=== PATIENT | male | born 1950 | race Caucasian/White ===

== ENCOUNTER 2023-06-24 11:36 | Observation (INO) | payer MEDICARE ==
--- NOTE | 2023-06-24 11:39 | ERPHSYRPT ---
- History of Present Illness Time Seen by Provider: 06/24/23 11:39 Source: patient, EMS, shelter records, old records Exam Limitations: clinical condition Physician History: This is a 73-year-old white male patient of Dr. Zhou who was brought to the emergency department by the paramedics who provided additional, independent history secondary to patient's confusion. In addition, I reviewed the [facility] notes. 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 He is DNR. The shelter reported the patient to be hypotensive with a systolic blood pressure in the 70s. Patient arrives to the emergency department with a systolic blood pressure of 104. Patient is confused but is able to answer some questions appropriately. Patient was sent to us because of the altered mental status as well as abnormal lab findings The lab findings that the shelter nurse reported were labs that were obtained on 06/18/2023. Patient is reported to be on lactulose. Patient also was scheduled for outpatient paracentesis on 06/29/2023. I reviewed the outpatient lab information from those labs reported to be drawn on 06/18/2023. Timing/Duration: today Severity: moderate Associated Symptoms: other (The patient reports that his bilateral upper extremities are tender. He has no complaints of abdominal pain, chest pain or shortness of breath.) Allergies/Adverse Reactions: No Known Drug Allergies Allergy (Verified 06/24/23 12:25) Home Medications: Furosemide [Lasix] 20 mg PO DAILY 06/24/23 [History] Hydrocodone/Acetaminophen [[place] 10-325 mg] 1 tablet PO Q6H PRN PRN 06/24/23 [ History] Lactulose [Lactulose 20 gm/30Ml Ud Cup] 10 gm PO QID 06/24/23 [History] Lorazepam 0.5 mg [Ativan 0.5 MG] 0.5 mg PO Q8H PRN PRN 06/24/23 [History] Losartan Potassium 50 mg [Cozaar 50 MG] 50 mg PO DAILY 06/24/23 [History] Pantoprazole Sodium [Protonix] 40 mg PO BID 06/24/23 [History] Potassium Chloride 10 meq PO DAILY 06/24/23 [History] Prochlorperazine Maleate 10 mg PO Q4H PRN PRN 06/24/23 [History] Spironolactone [Aldactone] 50 mg PO BID 06/24/23 [History] Tramadol HCl 50 mg [Ultram 50 mg] 50 mg PO Q6H PRN PRN 06/24/23 [History] ondansetron HCL [Ondansetron HCl] 8 mg PO Q6H PRN PRN 06/24/23 [History] Travel Risk - International Travel Have you traveled outside of the country in past 3 weeks: No - Emerging Infectious Disease Are you exhibiting symptoms associated with any current EIDs: No - Review of Systems Constitutional: No Symptoms Eyes: No Symptoms Ears, Nose, & Throat: No Symptoms Respiratory: No Symptoms Cardiac: No Symptoms Abdominal/Gastrointestinal: No Symptoms Genitourinary Symptoms: No Symptoms Musculoskeletal: No Symptoms Skin: No Symptoms Psychological: Other (Mildly confused) Endocrine: No Symptoms Hematologic/Lymphatic: No Symptoms Immunological/Allergic: No Symptoms All Other Systems: Reviewed and Negative - Past Medical History Pertinent Past Medical History: Yes - Past Surgical History Past Surgical History: Yes - Nursing Vital Signs Nursing Vital Signs: Initial Vital Signs Temperature 97.2 F 06/24/23 11:38 Pulse Rate 74 06/24/23 11:38 Respiratory Rate 20 06/24/23 11:38 Blood Pressure 104/70 06/24/23 11:38 O2 Sat by Pulse Oximetry 98 06/24/23 11:38 Pain Scale Pain Intensity 0 - Physical Exam General Appearance: no apparent distress, alert, anxiety, obese Eye Exam: PERRL/EOMI, scleral icterus Ears, Nose, Throat Exam: dry mucous membranes Neck Exam: normal inspection, non-tender, supple, full range of motion Respiratory Exam: normal breath sounds, lungs clear, airway intact, No chest tenderness, No respiratory distress Cardiovascular Exam: regular rate/rhythm, normal heart sounds, normal peripheral pulses Gastrointestinal/Abdomen Exam: distention (With fluid wave present) Rectal Exam: not done Back Exam: normal inspection, normal range of motion, No CVA tenderness, No vertebral tenderness Extremity Exam: normal range of motion, pelvis stable, other (Generalized edema of the skin. Skin tears are present on bilateral upper extremities.) Neurologic Exam: cooperative, regional facilities specialist II-XII nml as tested, sensation nml Skin Exam: jaundice, other (Generalized) Lymphatic Exam: No adenopathy SpO2 Interpretation: normal O2 Delivery: Room Air - Course Nursing assessment & vital signs reviewed: Yes Ordered Tests: Active Orders 24 hr Category Date Time Status IV Insertion STAT Care 06/24/23 12:25 Active ABDOMEN AND PELVIS W/0 CONTRAS [CT] Stat Exams 06/24/23 12:26 Completed CBC W DIFF Stat Lab 06/24/23 12:00 Completed Lactic Acid Stat Lab 06/24/23 12:24 Completed PROTIME WITH INR Stat Lab 06/24/23 12:00 Completed UA W/RFX UR CULTURE Stat Lab 06/24/23 12:26 Ordered VBG [VENOUS BLOOD GAS] Stat Lab 06/24/23 13:26 Completed Medication Summary Generic Name Dose Route Start Last Admin Trade Name Freq PRN Reason Stop Dose Admin Sodium Chloride 1,000 mls @ 100 mls/hr 06/24/23 13:15 06/24/23 13:43 Sodium Chloride 0.9% 1000 Ml IV 07/24/23 13:14 100 mls/hr .Q10H MICHAEL Administration Discontinued Medications Generic Name Dose Route Start Last Admin Trade Name Freq PRN Reason Stop Dose Admin Calcium Gluconate 1,000 mg 06/24/23 13:37 06/24/23 13:44 Calcium Gluconate 1000 Mg/10 Ml Vial IV 06/24/23 13:38 1,000 mg STAT ONE Administration Calcium Gluconate Confirm 06/24/23 13:44 Calcium Gluconate 1000 Mg/10 Ml Vial Administered 06/24/23 13:45 Dose 1,000 mg IV .STK-MED ONE Dextrose 50 ml 06/24/23 13:14 06/24/23 13:43 Dextrose 50%-Water 50 Ml Abboject IV 06/24/23 13:15 50 ml STAT ONE Administration Dextrose Confirm 06/24/23 13:41 Dextrose 50%-Water 50 Ml Abboject Administered 06/24/23 13:42 Dose 50 ml IV .STK-MED ONE Furosemide 20 mg 06/24/23 13:16 06/24/23 13:43 Furosemide 20 Mg/Vial IV 06/24/23 13:17 20 mg STAT ONE Administration Furosemide Confirm 06/24/23 13:41 Furosemide 20 Mg/Vial Administered 06/24/23 13:42 Dose 20 mg .ROUTE .STK-MED ONE Sodium Bicarbonate 50 meq 06/24/23 13:14 06/24/23 13:43 Sodium Bicarbonate 1 Meq/Ml 50ml Syringe IV 06/24/23 13:15 50 meq STAT ONE Administration Sodium Bicarbonate Confirm 06/24/23 13:41 Sodium Bicarbonate 1 Meq/Ml 50ml Syringe Administered 06/24/23 13:42 Dose 50 meq IV .STK-MED ONE Lab/Rad Data: Laboratory Result Diagrams 06/24/23 12:00 06/24/23 12:00 Laboratory Results 06/24/23 06/24/23 06/24/23 Range/Units 13:26 12:24 12:00 WBC (4.0-10.5) x10^3/uL RBC (4.1-5.6) x10^6/uL Hgb (12.5-18.0) g/dL Hct (42-50) % MCV (78-100) fL MCH (26-32) pg MCHC (32-36) g/dL RDW (11.5-14.0) % Plt Count (150-450) x10^3/uL MPV (7.5-11.0) fL Gran % (36.0-66.0) % Immature Gran % (Auto) (0.00-0.4) % Nucleat RBC Rel Count (0.00-0.1) % Eos # (Auto) (0-0.5) x10^3/uL Immature Gran # (Auto) (0.00-0.03) x10^3u/L Absolute Lymphs (auto) (1.0-4.6) x10^3/uL Absolute Monos (auto) (0.0-1.3) x10^3/uL Absolute Nucleated RBC (0.00-0.01) x10^3u/L Lymphocytes % (24.0-44.0) % Monocytes % (0.0-12.0) % Eosinophils % (0.00-5.0) % Basophils % (0.0-0.4) % Absolute Granulocytes (1.4-6.9) x10^3/uL Basophils # (0-0.4) x10^3/uL PT 17.6 H (9.4-12.5) SECONDS INR 1.67 (0.8-3.0) pO2/FiO2 Ratio 21.0 % VBG pH 7.25 L (7.32-7.42) VBG pCO2 at Pat Temp 36 L (42-55) mm/Hg VBG pO2 at Pat Temp 51 H (25-40) mm/Hg VBG HCO3 15.8 L* (22-28) meq/L VBG O2 Sat (Devang) 83.0 L (95-100) VBG Base Excess -10.6 L (-2.0-2.0) VBG Hemoglobin 9.3 VBG Carboxyhemoglobin 3.9 (0.0-6.9) % T HGB POC Potassium 6.5 H* (3.5-5.1) Sodium Direct (138-146) mmol/L Potassium (3.5-4.9) mmol/L Chloride (98-109) mmol/L Carbon Dioxide (24-29) mmol/L Venous BUN (8-26) mg/dL Creatinine (0.6-1.3) mg/dL Glucose (70-105) mg/dL Lactic Acid 2.0 (0.4-2.0) Ionized Calcium (1.12-1.32) mmol/L 06/24/23 06/24/23 Range/Units 12:00 12:00 WBC 16.9 H (4.0-10.5) x10^3/uL RBC 2.84 L (4.1-5.6) x10^6/uL Hgb 8.9 L (12.5-18.0) g/dL Hct 29.1 L (42-50) % MCV 102.5 H (78-100) fL MCH 31.3 (26-32) pg MCHC 30.6 L (32-36) g/dL RDW 19.1 H (11.5-14.0) % Plt Count 373 (150-450) x10^3/uL MPV 10.4 (7.5-11.0) fL Gran % 79.9 H (36.0-66.0) % Immature Gran % (Auto) 1.5 H (0.00-0.4) % Nucleat RBC Rel Count 0.0 (0.00-0.1) % Eos # (Auto) 0.18 (0-0.5) x10^3/uL Immature Gran # (Auto) 0.26 H (0.00-0.03) x10^3u/L Absolute Lymphs (auto) 1.48 (1.0-4.6) x10^3/uL Absolute Monos (auto) 1.38 H (0.0-1.3) x10^3/uL Absolute Nucleated RBC 0.00 (0.00-0.01) x10^3u/L Lymphocytes % 8.8 L (24.0-44.0) % Monocytes % 8.2 (0.0-12.0) % Eosinophils % 1.1 (0.00-5.0) % Basophils % 0.5 (0.0-0.4) % Absolute Granulocytes 13.49 H (1.4-6.9) x10^3/uL Basophils # 0.08 (0-0.4) x10^3/uL PT (9.4-12.5) SECONDS INR (0.8-3.0) pO2/FiO2 Ratio % VBG pH (7.32-7.42) VBG pCO2 at Pat Temp (42-55) mm/Hg VBG pO2 at Pat Temp (25-40) mm/Hg VBG HCO3 (22-28) meq/L VBG O2 Sat (Devang) (95-100) VBG Base Excess (-2.0-2.0) VBG Hemoglobin VBG Carboxyhemoglobin (0.0-6.9) % T HGB POC Potassium (3.5-5.1) Sodium Direct 135 L (138-146) mmol/L Potassium 6.2 H* (3.5-4.9) mmol/L Chloride 108 (98-109) mmol/L Carbon Dioxide 16 L (24-29) mmol/L Venous BUN 111 H (8-26) mg/dL Creatinine 4.4 H (0.6-1.3) mg/dL Glucose 101 (70-105) mg/dL Lactic Acid (0.4-2.0) Ionized Calcium 1.17 (1.12-1.32) mmol/L - Progress Progress: unchanged, re-examined Progress Note: 06/24/23 12:23 This patient medical issue is 1 of high complexity. The level of complexity in the workup performed is based on review of the patient's past medical history, review the patient's medication list, review of patient drug allergy list, history of present illness and physical findings on examination. The patient's workup includes placement of intravenous line, repeat CBC, CMP, ammonia level, PT/INR, CT scan of the abdomen pelvis without contrast. The patient is DNR. 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 In addition there is changes in his mental status. This means there is at least 3 organ systems involved with his condition that shows abnormalities. We are awaiting the arrival of the POA. This POA will be asked to give us direction of what management they will allow us to proceed with. 06/24/23 14:52 I interpreted the laboratory data results that have been returned. We did have to send out the liver function test and ammonia levels to [facility]. They have not returned yet. CT scan of the abdomen pelvis without contrast was interpreted by the radiologist. I reviewed the impression. The impression states numerous hepatic calcified metastatic masses are present. This is consistent with the patient's stage IV colon cancer. There is a small amount of abdominopelvic ascites and diffuse anasarca. There is also mild fecal stasis. There is evidence of tiny gallstones/gravel present. I spoke with Dr. Horner. I reviewed the patient history, I reviewed the patient's presenting complaint, I reviewed the laboratory data workup results as well as the radiographic study results with him. He is aware that we are a waiting the patient's LFTs and ammonia level. He states that we can place this patient in observation. I informed him that I spoke with the patient's POA (John Canela). John Hilton states that he would like the patient to be placed in observation for gentle IV hydration and repeat laboratory data tomorrow morning. He does not want the patient to undergo dialysis. Dr. Horner Discussed with : Lisa Counseled pt/family regarding: lab results, diagnosis, rad results Medical Desision Making - Independent Historian Additional History obtained from: [facility] nurse, Bryologist/EMT - Discussion of managment Care discussed with:: hospitalist Reviewed:: Test results, Need for additional workup Agreed on:: place in obs Will see patient: in hospital - Diagnostic Testing Diagnostic test were ordered, analyzed, and reviewed by me: Yes Radiological Interpretation: Reviewed by me, Teleradiologist Report - Risk of complications The pt has a high risk of morbidity or mortality based on: Decision regarding hospitilization or escalation of hosp level of care - Departure Departure Disposition: Observation Clinical Impression: Altered mental status, Ascites, Hyperkalemia, Anemia, DNR (do not resuscitate) discussion, DNR (do not resuscitate) Condition: Serious Critical Care Time: No Referrals: PITER AGUILAR OF [Primary Care Provider] - Follow up/PCP as directed
[2023-06-24 12:45] LABS: Absolute Neutrophil Ct (ANC) 13.49 x10^3/uL (1.4-6.9); BASOPHIL % 0.5 % (0.0-0.4); Basophil (Absolute #) 0.08 x10^3/uL (0-0.4); Eosinophil % 1.1 % (0.00-5.0); Eosinophil (Absolute #) 0.18 x10^3/uL (0-0.5); Hematocrit 29.1 % (42-50); Hemoglobin 8.9 g/dL (12.5-18.0); IMMATURE GRAN # 0.26 x10^3u/L (0.00-0.03); IMMATURE GRAN % 1.5 % (0.00-0.4); Lymphocyte (Absolute #) 1.48 x10^3/uL (1.0-4.6); Lymphocytes % 8.8 % (24.0-44.0); Mean Cell Volume 102.5 fL (78-100); Mean Corpuscular Hemoglobin 31.3 pg (26-32); Mean Corpuscular Hgb Concent. 30.6 g/dL (32-36); Mean Platelet Volume 10.4 fL (7.5-11.0); Monocyte (Absolute #) 1.38 x10^3/uL (0.0-1.3); Monocytes % 8.2 % (0.0-12.0); Neutrophil % 79.9 % (36.0-66.0); Platelet Count 373 x10^3/uL (150-450); Red Blood Count 2.84 x10^6/uL (4.1-5.6); Red Cell Distribution Width 19.1 % (11.5-14.0); White Blood Count 16.9 x10^3/uL (4.0-10.5)
[2023-06-24 12:58] LABS: INR 1.67 (0.8-3.0); PROTIME 17.6 SECONDS (9.4-12.5)
[2023-06-24 13:01] LABS: ISTAT K 6.2 mmol/L (3.5-4.9); ISTAT iCA 1.17 mmol/L (1.12-1.32)
[2023-06-24 13:02] LABS: ISTAT CREA 4.4 mg/dL (0.6-1.3)
--- NOTE | 2023-06-24 13:19 | XRAY ---
Indication: Abdominal distention. Status post paracentesis. Multiple contiguous images obtained through the abdomen and pelvis without contrast. Comparison: None Study is degraded by respiration artifact and beam artifact from patient's arms. Lung bases demonstrates mild dependent atelectasis. Heart is not enlarged. Noncontrasted stomach and bowel loops appear nonobstructed. Mild diffuse scattered colonic fecal debris throughout including the rectum. Small abdominal and pelvic ascites. No free air. Moderate diffuse anasarca. Liver demonstrates numerous calcified metastatic masses. A few tiny gallstones/gravel. No free air. Remaining pancreas, spleen, adrenal glands, kidneys, ureters, and bladder are unremarkable for noncontrast. Faint minimal aortic calcifications without AAA. Osseous structures intact with osteopenia and minimal/mild degenerative changes throughout visualized spine. Impression: 1. Respiration and beam artifact. 2. 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 3. Small abdominal/pelvic ascites and diffuse anasarca. 4. Mild diffuse fecal stasis. 5. Tiny gallstones/gravel.
[2023-06-24 13:26] LABS: VBG BASE EXCESS -10.6 (-2.0-2.0); VBG CARBOXYHEMOGLOBIN 3.9 % T HGB (0.0-6.9); VBG HCO3- 15.8 meq/L (22-28); VBG HEMOGLOBIN 9.3; VBG pH 7.25 (7.32-7.42)
[2023-06-24 13:27] LABS: VBG POTASSIUM 6.5 (3.5-5.1)
[2023-06-24] MEDS ORDERED: D50W 50 ml Abboject IV ONE (13:41)
[2023-06-24] MEDS ORDERED: Sodium Chloride 0.9% 1000 ML 1,000 ML ONE (13:41)
[2023-06-24] MEDS ORDERED: SODIUM BICARBONATE 50 MEQ/50 ML ABBOJECT IV ONE ×2 (13:41→18:41)
[2023-06-24] MEDS ORDERED: Lasix 20 MG/2 ML ONE (13:41)
[2023-06-24] MEDS: Sodium Chloride 0.9% 1000 ML 1,000 ML IV SCH ×2 (13:43→18:57)
[2023-06-24] MEDS: D50W 50 ml Abboject IV ONE (13:43)
[2023-06-24] MEDS: SODIUM BICARBONATE 50 MEQ/50 ML ABBOJECT IV ONE (13:43)
[2023-06-24] MEDS: Lasix 20 MG/2 ML IV ONE (13:43)
[2023-06-24] MEDS ORDERED: Calcium Gluconate 10% 1000 MG IV ONE (13:44)
[2023-06-24] MEDS: Calcium Gluconate 10% 1000 MG IV ONE (13:44)
[2023-06-24] MEDS ORDERED: Zofran 4 MG/2 ML VIAL IV PRN (16:03)
[2023-06-24 16:15] LABS: Creatinine 1 3.66 mg/dL (0.66-1.25); Total Protein 5.8 g/dL (6.3-8.2)
[2023-06-24 16:35] LABS: Potassium 6.4 mmol/L (3.5-5.1)
--- NOTE | 2023-06-24 16:46 | PCM.HP ---
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 He was brought to the emergency department by the paramedics who provided additional, independent history secondary to patient's confusion. There is also paperwork from the [facility] with notes. The [facility] reported the patient to be hypotensive with a systolic blood pressure in the 70s. Patient arrived to the emergency department with a systolic blood pressure of 104. Patient is confused but is alert to self. Patient was sent to us because of the altered mental status as well as abnormal lab findings The lab findings that the [facility] nurse reported were labs that were obtained on 06/18/2023. BP improved since admission. Patient is reported to be on lactulose at the [facility] and will continue for hepatic encephalopathy and elevated ammonia. Pt had a paracentesis Thursday and is also scheduled for outpatient paracentesis on 06/29/2023. Family in room reports they want everything done to help him and improve his confusion. Per discussion with Dr. Horner and ER physician family wants IV fluids no dialysis. Pt is a good candidate for hospice at this point and will have case management discuss with family. Will consult nephrology as well. He has several wounds including a stageable coccyx wound. Pictures were taken by nursing and documented. Will have PT eval to see if they can help with wound care. He is alert to person only and is jaundiced. His POA apparently wants him to have fluids overnight. This is something that can also be done in the [facility]. We will watch overnight and provide IV fluids. However he appears to be 3rd spacing and has 3+ edema of BLLE, and weeping of LUE and BLLE. Therefore we will have to provide light IV hydration with close monitoring. - Review of Systems Constitutional: Fatigue, No Fever, No Chills Eyes: No Symptoms Ears, Nose, & Throat: No Symptoms Respiratory: No Cough, No Short Of Breath Cardiac: Edema, No Chest Pain, No Syncope Abdominal/Gastrointestinal: No Abdominal Pain, No Nausea, No Vomiting, No Diarrhea Genitourinary Symptoms: No Dysuria Musculoskeletal: No Back Pain, No Neck Pain Skin: Decubiti, No Rash Neurological: Other (confusion), No Dizziness, No Focal Weakness, No Sensory Changes Psychological: No Symptoms Endocrine: No Symptoms Hematologic/Lymphatic: No Symptoms Immunological/Allergic: No Symptoms Medications & Allergies Home Medications: Home Medication List Collagenase Oint [Santyl OINTMENT] 30 gm TOP DAILY 06/24/23 [History Confirmed 06/24/23] Furosemide [Lasix] 20 mg PO DAILY 06/24/23 [History Confirmed 06/24/23] Hydrocodone/Acetaminophen [Dahlgren 10-325 mg] 1 tablet PO Q6H PRN PRN 06/24/23 [History Confirmed 06/24/23] Lactulose [Lactulose 20 gm/30Ml Ud Cup] 10 gm PO QID 06/24/23 [History Confirmed 06/24/23] Lorazepam 0.5 mg [Ativan 0.5 MG] 0.5 mg PO Q8H PRN PRN 06/24/23 [History Confirmed 06/24/23] Losartan Potassium 50 mg [Cozaar 50 MG] 50 mg PO DAILY 06/24/23 [History Confirmed 06/24/23] Pantoprazole Sodium [Protonix] 40 mg PO BID 06/24/23 [History Confirmed 06/24/23] Potassium Chloride 10 meq PO DAILY 06/24/23 [History Confirmed 06/24/23] Prochlorperazine Maleate 10 mg PO Q4H PRN PRN 06/24/23 [History Confirmed 06/24/23] Spironolactone [Aldactone] 50 mg PO BID 06/24/23 [History Confirmed 06/24/23] Tramadol HCl 50 mg [Ultram 50 mg] 50 mg PO Q6H PRN PRN 06/24/23 [History Confirmed 06/24/23] ondansetron HCL [Ondansetron HCl] 8 mg PO Q6H PRN PRN 06/24/23 [History Co nfirmed 06/24/23] Allergies/Adverse Reactions: Allergies Allergy/AdvReac Type Severity Reaction Status Date / Time No Known Drug Allergies Allergy Verified 06/24/23 12:25 - Past Medical History Past Medical History: Yes Cardiac History: Hypertension Endocrine Medical History: Liver Disease, Other GI Medical History: Other History: Renal Disease Comment: colon cancer. liver mets. ascites - Past Surgical History Past Surgical History: Yes - Social History Smoking Status: Unknown if ever smoked Exposure to second hand smoke: (unknown) Alcohol: None Drug Use: none - Social Determinants of Health Will the patient participate in the screening: Unable to obtain - Physical Exam Vital Signs: Vital Signs - 24 hr Temp Pulse Resp BP BP Pulse Ox 06/24/23 15:45 93/36 06/24/23 15:30 68 10 L 64/46 06/24/23 15:15 68 9 L 88/51 06/24/23 15:00 70 10 L 81/68 06/24/23 14:45 85 7 L 80/60 06/24/23 14:31 86 9 L 80/53 06/24/23 14:16 96 H 17 93/59 06/24/23 14:00 69 15 95/50 95 06/24/23 13:46 69 12 82/42 06/24/23 13:30 72 12 86/47 06/24/23 13:15 68 17 67/46 93 L 06/24/23 13:00 69 15 87/48 90 L 06/24/23 12:58 66 06/24/23 12:31 91/66 06/24/23 12:16 36 H 90/48 96 06/24/23 12:05 132 H 19 100/68 95 06/24/23 12:04 96 06/24/23 12:02 17 98 06/24/23 11:51 104/70 91 L 06/24/23 11:38 97.2 F 74 20 104/70 98 General Appearance: no apparent distress, alert Neurologic Exam: alert, cooperative, normal mood/affect, confusion, motor weakness, No motor deficits Eye Exam: PERRL/EOMI, eyes nml inspection Ears, Nose, Throat Exam: normal ENT inspection, TMs normal, pharynx normal, moist mucous membranes Neck Exam: normal inspection, non-tender, supple, full range of motion Respiratory Exam: normal breath sounds, lungs clear, No respiratory distress Cardiovascular Exam: regular rate/rhythm, normal heart sounds, normal peripheral pulses Gastrointestinal/Abdomen Exam: soft, normal bowel sounds, distention, other, No tenderness, No mass Back Exam: normal inspection, normal range of motion, No CVA tenderness, No vertebral tenderness Extremity Exam: normal inspection, normal range of motion, pelvis stable Skin Exam: normal color, warm, dry, jaundice, other (see pics of wounds, BL arms skin tears, Left arm weeping, BLLE + 3 pittign edema, stageable coxxyx wound), No rash Lymphatic Exam: No adenopathy Results - Labs Lab/Micro Results: Lab Results-Last 24 Hours 06/24/23 06/24/23 06/24/23 Range/Units 12:00 12:00 12:00 WBC 16.9 H (4.0-10.5) x10^3/uL RBC 2.84 L (4.1-5.6) x10^6/uL Hgb 8.9 L (12.5-18.0) g/dL Hct 29.1 L (42-50) % MCV 102.5 H (78-100) fL MCH 31.3 (26-32) pg MCHC 30.6 L (32-36) g/dL RDW 19.1 H (11.5-14.0) % Plt Count 373 (150-450) x10^3/uL MPV 10.4 (7.5-11.0) fL Gran % 79.9 H (36.0-66.0) % Immature Gran % (Auto) 1.5 H (0.00-0.4) % Nucleat RBC Rel Count 0.0 (0.00-0.1) % Eos # (Auto) 0.18 (0-0.5) x10^3/uL Immature Gran # (Auto) 0.26 H (0.00-0.03) x10^3u/L Absolute Lymphs (auto) 1.48 (1.0-4.6) x10^3/uL Absolute Monos (auto) 1.38 H (0.0-1.3) x10^3/uL Absolute Nucleated RBC 0.00 (0.00-0.01) x10^3u/L Lymphocytes % 8.8 L (24.0-44.0) % Monocytes % 8.2 (0.0-12.0) % Eosinophils % 1.1 (0.00-5.0) % Basophils % 0.5 (0.0-0.4) % Absolute Granulocytes 13.49 H (1.4-6.9) x10^3/uL Basophils # 0.08 (0-0.4) x10^3/uL PT 17.6 H (9.4-12.5) SECONDS INR 1.67 (0.8-3.0) pO2/FiO2 Ratio % VBG pH (7.32-7.42) VBG pCO2 at Pat Temp (42-55) mm/Hg VBG pO2 at Pat Temp (25-40) mm/Hg VBG HCO3 (22-28) meq/L VBG O2 Sat (Devang) (95-100) VBG Base Excess (-2.0-2.0) VBG Hemoglobin VBG Carboxyhemoglobin (0.0-6.9) % T HGB POC Potassium (3.5-5.1) Sodium 134 L (135-145) mmol/L Sodium Direct 135 L (138-146) mmol/L Potassium 6.4 H* (3.5-5.1) mmol/L Chloride 111 H (98-107) mmol/L Carbon Dioxide 14 L* (22-30) mmol/L Anion Gap 16.0 H (5-15) MEQ/L BUN 117 H (9-20) mg/dL Venous BUN 111 H (8-26) mg/dL Creatinine 3.66 H (0.66-1.25) mg/dL Estimated GFR 17.0 ML/MIN Glucose 96 (74-106) mg/dL Lactic Acid (0.4-2.0) Calcium 8.0 L (8.4-10.2) mg/dL Ionized Calcium 1.17 (1.12-1.32) mmol/L Total Bilirubin 1.00 (0.2-1.3) mg/dL AST 91 H (17-59) U/L ALT 48 (0-50) U/L Alkaline Phosphatase 593 H (38-126) U/L Ammonia Serum Total Protein 5.8 L (6.3-8.2) g/dL Albumin 2.0 L (3.5-5.0) g/dL 06/24/23 06/24/23 06/24/23 Range/Units 12:24 13:10 13:26 WBC (4.0-10.5) x10^3/uL RBC (4.1-5.6) x10^6/uL Hgb (12.5-18.0) g/dL Hct (42-50) % MCV (78-100) fL MCH (26-32) pg MCHC (32-36) g/dL RDW (11.5-14.0) % Plt Count (150-450) x10^3/uL MPV (7.5-11.0) fL Gran % (36.0-66.0) % Immature Gran % (Auto) (0.00-0.4) % Nucleat RBC Rel Count (0.00-0.1) % Eos # (Auto) (0-0.5) x10^3/uL Immature Gran # (Auto) (0.00-0.03) x10^3u/L Absolute Lymphs (auto) (1.0-4.6) x10^3/uL Absolute Monos (auto) (0.0-1.3) x10^3/uL Absolute Nucleated RBC (0.00-0.01) x10^3u/L Lymphocytes % (24.0-44.0) % Monocytes % (0.0-12.0) % Eosinophils % (0.00-5.0) % Basophils % (0.0-0.4) % Absolute Granulocytes (1.4-6.9) x10^3/uL Basophils # (0-0.4) x10^3/uL PT (9.4-12.5) SECONDS INR (0.8-3.0) pO2/FiO2 Ratio 21.0 % VBG pH 7.25 L (7.32-7.42) VBG pCO2 at Pat Temp 36 L (42-55) mm/Hg VBG pO2 at Pat Temp 51 H (25-40) mm/Hg VBG HCO3 15.8 L* (22-28) meq/L VBG O2 Sat (Devang) 83.0 L (95-100) VBG Base Excess -10.6 L (-2.0-2.0) VBG Hemoglobin 9.3 VBG Carboxyhemoglobin 3.9 (0.0-6.9) % T HGB POC Potassium 6.5 H* (3.5-5.1) Sodium (135-145) mmol/L Sodium Direct (138-146) mmol/L Potassium (3.5-5.1) mmol/L Chloride (98-107) mmol/L Carbon Dioxide (22-30) mmol/L Anion Gap (5-15) MEQ/L BUN (9-20) mg/dL Venous BUN (8-26) mg/dL Creatinine (0.66-1.25) mg/dL Estimated GFR ML/MIN Glucose (74-106) mg/dL Lactic Acid 2.0 (0.4-2.0) Calcium (8.4-10.2) mg/dL Ionized Calcium (1.12-1.32) mmol/L Total Bilirubin (0.2-1.3) mg/dL AST (17-59) U/L ALT (0-50) U/L Alkaline Phosphatase (38-126) U/L Ammonia [employer] Serum Total Protein (6.3-8.2) g/dL Albumin (3.5-5.0) g/dL - Radiology Impressions Radiology Exams & Impressions: Radiology Procedures Category Date Time Status ABDOMEN AND PELVIS W/0 CONTRAS [CT] Stat Exams 06/24/23 12:26 Completed Assessment/Plan (1) Altered mental status Current Visit: Yes Status: Acute Assessment & Plan: - 2:2 hepatic encephalopathy from colon Ca with mets to liver - Continue lactulose - ammonia level elevated - Per [facility] paperwork he is normally alert but disoriented, and cannot follow simple commands. - He is normally incontinent of bowel and bladder - He is assist of 1 to feed - Pt is a DNR - He has paperwork on his chart for limited interventions, agreeable to IVF, and antibiotics, basic airway management, avoid ICU, no intubation. Code(s): R41.82 - ALTERED MENTAL STATUS, UNSPECIFIED (2) Metastatic colon cancer to liver Current Visit: Yes Status: Chronic Assessment & Plan: - case management to discuss hospice with family - Port in place - AST 91 - Alk phos 593 - + jaundice - CT abd pelvis Impression: 1. Respiration and beam artifact. 2. 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 3. Small abdominal/pelvic ascites and diffuse anasarca. 4. Mild diffuse fecal stasis. 5. Tiny gallstones/gravel - Lactulose to help with fecal stasis Code(s): C18.9 - MALIGNANT NEOPLASM OF COLON, UNSPECIFIED; C78.7 - SECONDARY MALIG NEOPLASM OF LIVER AND INTRAHEPATIC BILE DUCT (3) Ascites Current Visit: Yes Status: Chronic Assessment & Plan: - Had paracentesis Thursday and scheduled to again have next Thursday. Code(s): R18.8 - OTHER ASCITES (4) Hyperkalemia Current Visit: Yes Status: Acute Assessment & Plan: -K+ 6.2 - Lasix gave in ER - repeat K+ ordered - Hold spirolactone - Tele Code(s): E87.5 - HYPERKALEMIA (5) Increased ammonia level Current Visit: Yes Status: Acute Assessment & Plan: - Continue lactulose - 2:2 colon Ca with mets to liver Code(s): R79.89 - OTHER SPECIFIED ABNORMAL FINDINGS OF BLOOD CHEMISTRY (6) Wounds, multiple Current Visit: Yes Status: Acute Assessment & Plan: - see pics in chart by nursing and documentation - Pt eval for wound care if able to help - BL arms skin tears, Stageable coxxyx wounds- all on admission. - WBC 16.9 - Zosyn- pharmacy to dose Code(s): T07.XXXA - UNSPECIFIED MULTIPLE INJURIES, INITIAL ENCOUNTER (7) Anemia Current Visit: Yes Status: Chronic Qualifiers: Anemia type: other cause Assessment & Plan: - chronic - 2:2 Colon Ca dx - Monitor - Hgb stable at 8.9 Code(s): D64.9 - ANEMIA, UNSPECIFIED (8) Metabolic acidosis Current Visit: Yes Status: Acute Assessment & Plan: - Co2 14 - start bicarb gtt - trend - ABG's PRN Code(s): E87.20 - ACIDOSIS, UNSPECIFIED (9) Hypoglycemia Current Visit: Yes Status: Acute Assessment & Plan: - soft diet with assist - D5 IVF with sodium bicarb - Accuchecks AC/HS Code(s): E16.2 - HYPOGLYCEMIA, UNSPECIFIED (10) YO (acute kidney injury) Current Visit: Yes Status: Acute Assessment & Plan: - Creat 3.66 - Unknown baseline - Nephrology consult - gentle hydration with IVF - Hold BP meds - avoids NSAIDS VTE: SCD's Next of kin: John Canela [phone] D/C plan: possible hospice Code status: DNR Code(s): N17.9 - ACUTE KIDNEY FAILURE, UNSPECIFIED Telemedicine Encounter - Telemedicine Encounter Telemedicine Encounter: The entirety of this encounter was performed via Telemedicine"
[2023-06-24] MEDS ORDERED: ONDANSETRON HCL 8 MG PO PRN (17:07)
[2023-06-24] MEDS ORDERED: ZOFRAN ODT 4 MG PO PRN (17:34)
[2023-06-24] MEDS ORDERED: MEDICATION INTERVENTION MC SCH (17:45)
[2023-06-24] MEDS ORDERED: Dextrose 5%/Water IV Soln. 1000 ML 1,000 ML IV ONE (18:41)
[2023-06-24] MEDS: Piperacillin/Tazobactam 2.25 GM 2.25 GM in Sodium Chloride 100ML MINI-BAG PLUS 100 ML IV SCH (19:42)
[2023-06-24] MEDS: Sodium Bicarbonate 50 MEQ/50 ML VIAL*** 150 MEQ in Dextrose 5%/Water IV Soln. 1000 ML 1... IV SCH (19:45)
[2023-06-24] MEDS: LACTULOSE 20 GM/30ML UD CUP PO SCH (21:29)
[2023-06-24] MEDS ORDERED: PANTOPRAZOLE SODIUM 40 MG PO SCH (22:00)
[2023-06-24] MEDS ORDERED: Protonix 40MG Tablet PO SCH (22:00)
[2023-06-24] MEDS: PHARMACY DOSING REQUEST MC ONE ×2 (22:15)
[2023-06-25 04:05] LABS: ADD URINE CULTURE? NO (NO); Appearance Clear (Clear); Bacteria None Seen /HPF (None Seen); Bilirubin Negative (Negative); Blood Negative (Negative); Epithelial Cells None Seen /HPF (None Seen); Glucose, Urine Negative (Negative); Ketones Negative (Negative); Leukocyte Esterase Negative (Negative); Nitrite Negative (Negative); Protein,Urine Dip Negative (Negative); RBC 0-2 /HPF (0-5); Specific Gravity 1.015 (1.005-1.030); Urobilinogen 0.2 mg/dL (0.2); WBC 0-2 /HPF (0-5)
[2023-06-25 04:33] LABS: Absolute Neutrophil Ct (ANC) 11.32 x10^3/uL (1.4-6.9); BASOPHIL % 0.5 % (0.0-0.4); Basophil (Absolute #) 0.07 x10^3/uL (0-0.4); Eosinophil % 1.8 % (0.00-5.0); Eosinophil (Absolute #) 0.26 x10^3/uL (0-0.5); Hemoglobin 7.9 g/dL (12.5-18.0); IMMATURE GRAN # 0.18 x10^3u/L (0.00-0.03); IMMATURE GRAN % 1.2 % (0.00-0.4); Lymphocyte (Absolute #) 1.53 x10^3/uL (1.0-4.6); Lymphocytes % 10.5 % (24.0-44.0); Mean Corpuscular Hemoglobin 31.6 pg (26-32); Mean Corpuscular Hgb Concent. 30.4 g/dL (32-36); Mean Platelet Volume 10.3 fL (7.5-11.0); Monocyte (Absolute #) 1.24 x10^3/uL (0.0-1.3); Monocytes % 8.5 % (0.0-12.0); Neutrophil % 77.5 % (36.0-66.0); Platelet Count 247 x10^3/uL (150-450); White Blood Count 14.6 x10^3/uL (4.0-10.5)
[2023-06-25] MEDS ORDERED: Sodium Chloride 100ML MINI-BAG PLUS 100 ML IV ONE (04:58)
[2023-06-25 05:04] LABS: ALBUMIN 1.7 g/dL (3.5-5.0); ANION GAP 14.3 MEQ/L (5-15); BILIRUBIN,TOTAL 0.8 mg/dL (0.2-1.3); Calcium 7.6 mg/dL (8.4-10.2); Creatinine 1 3.25 mg/dL (0.66-1.25); EST GLOMERULAR FILTRATION RATE 19.6 ML/MIN; Total Protein 4.9 g/dL (6.3-8.2)
[2023-06-25 05:10] LABS: Potassium 6.1 mmol/L (3.5-5.1)
--- NOTE | 2023-06-25 09:21 | PCM.DS ---
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 He was brought to the emergency department by the paramedics who provided additional, independent history secondary to patient's confusion. There is also paperwork from the [facility] assisted with notes. The assisted reported the patient to be hypotensive with a systolic blood pressure in the 70s. Patient arrived to the emergency department with a systolic blood pressure of 104. Patient is confused but is alert to self. Patient was sent to us because of the altered mental status as well as abnormal lab findings The lab findings that the assisted nurse reported were labs that were obtained on 06/18/2023. BP improved since admission. Patient is reported to be on lactulose at the [facility] and will continue for hepatic encephalopathy and elevated ammonia. Pt had a paracentesis Thursday and is also scheduled for outpatient paracentesis on 06/29/2023. Family in room reports they want everything done to help him and improve his confusion. Per discussion with Dr. Horner and ER physician family wants IV fluids no dialysis. Pt is a good candidate for hospice at this point and will have case management discuss with family. Will consult nephrology as well. He has several wounds including a stageable coccyx wound. Pictures were taken by nursing and documented. Will have PT eval to see if they can help with wound care. He is alert to person only and is jaundiced. His POA apparently wants him to have fluids overnight. This is something that can also be done in the assisted. We will watch overnight and provide IV fluids. However he appears to be 3rd spacing and has 3+ edema of BLLE, and weeping of LUE and BLLE. Therefore we will have to provide light IV hydration with close monitoring. 06/25/23 Pt resting in bed. He is alert to person and time today. Labs have somewhat improved today. Sister in room with pt. Discussed pt case with her. She explains she wants pt to be comfortable. Discussed labs and CT scan results. Based on these clinical findings discussed hospice may be the best option for this pt. She is going to speak with pt's son and make a decision. Discussed pt case with case management for possible hospice referral. At this time they still do not want dialysis. Pt denies any concerns and is not in pain. Case management discussed pt case with assisted and family. Family is going to go back to the ECF with comfort care only and they will treat his wounds. When needed they will transition to hospice at the ECF per family request. Discussed with nurse plan of care. - Vitals & Intake/Output Vital Signs: Vital Signs Temperature 98.1 F 06/25/23 07:27 Pulse Rate 73 06/25/23 07:27 Respiratory Rate 18 06/25/23 07:27 Blood Pressure 101/67 06/25/23 07:27 O2 Sat by Pulse Oximetry 91 L 06/25/23 07:27 Intake & Output: Intake & Output 06/22/23 06/23/23 06/24/23 06/25/23 11:59 11:59 11:59 11:59 Intake Total 1003 Output Total 300 Balance 703 Weight 115.5 kg 109.7 kg - Lab Result Diagrams: 06/25/23 04:29 06/25/23 04:29 Lab Results-Last 24 Hrs: Lab Results-Last 24 Hours 06/24/23 06/24/23 06/24/23 Range/Units 12:00 12:00 12:00 WBC 16.9 H (4.0-10.5) x10^3/uL RBC 2.84 L (4.1-5.6) x10^6/uL Hgb 8.9 L (12.5-18.0) g/dL Hct 29.1 L (42-50) % MCV 102.5 H (78-100) fL MCH 31.3 (26-32) pg MCHC 30.6 L (32-36) g/dL RDW 19.1 H (11.5-14.0) % Plt Count 373 (150-450) x10^3/uL MPV 10.4 (7.5-11.0) fL Gran % 79.9 H (36.0-66.0) % Immature Gran % (Auto) 1.5 H (0.00-0.4) % Nucleat RBC Rel Count 0.0 (0.00-0.1) % Eos # (Auto) 0.18 (0-0.5) x10^3/uL Immature Gran # (Auto) 0.26 H (0.00-0.03) x10^3u/L Absolute Lymphs (auto) 1.48 (1.0-4.6) x10^3/uL Absolute Monos (auto) 1.38 H (0.0-1.3) x10^3/uL Absolute Nucleated RBC 0.00 (0.00-0.01) x10^3u/L Lymphocytes % 8.8 L (24.0-44.0) % Monocytes % 8.2 (0.0-12.0) % Eosinophils % 1.1 (0.00-5.0) % Basophils % 0.5 (0.0-0.4) % Absolute Granulocytes 13.49 H (1.4-6.9) x10^3/uL Basophils # 0.08 (0-0.4) x10^3/uL PT 17.6 H (9.4-12.5) SECONDS INR 1.67 (0.8-3.0) pO2/FiO2 Ratio % VBG pH (7.32-7.42) VBG pCO2 at Pat Temp (42-55) mm/Hg VBG pO2 at Pat Temp (25-40) mm/Hg VBG HCO3 (22-28) meq/L VBG O2 Sat (Devang) (95-100) VBG Base Excess (-2.0-2.0) VBG Hemoglobin VBG Carboxyhemoglobin (0.0-6.9) % T HGB POC Potassium (3.5-5.1) Sodium 134 L (135-145) mmol/L Sodium Direct 135 L (138-146) mmol/L Potassium 6.4 H* (3.5-5.1) mmol/L Chloride 111 H (98-107) mmol/L Carbon Dioxide 14 L* (22-30) mmol/L Anion Gap 16.0 H (5-15) MEQ/L BUN 117 H (9-20) mg/dL Venous BUN 111 H (8-26) mg/dL Creatinine 3.66 H (0.66-1.25) mg/dL Estimated GFR 17.0 ML/MIN Glucose 96 (74-106) mg/dL POC Glucometer (74 to 106) mg/dL Hemoglobin A1c (4.5-6.0) % Lactic Acid (0.4-2.0) Calcium 8.0 L (8.4-10.2) mg/dL Ionized Calcium 1.17 (1.12-1.32) mmol/L Total Bilirubin 1.00 (0.2-1.3) mg/dL Direct Bilirubin (0.0-0.4) mg/dL AST 91 H (17-59) U/L ALT 48 (0-50) U/L Alkaline Phosphatase 593 H (38-126) U/L Ammonia Serum Total Protein 5.8 L (6.3-8.2) g/dL Albumin 2.0 L (3.5-5.0) g/dL Urine Color (Yellow) Urine Appearance (Clear) Urine pH (4.6-8.0) Ur Specific [place] (1.005-1.030) Urine Protein (Negative) Urine Glucose (UA) (Negative) mg/dL Urine Ketones (Negative) Urine Blood (Negative) Urine Nitrite (Negative) Urine Bilirubin (Negative) Urine Urobilinogen (0.2) mg/dL Ur Leukocyte Esterase (Negative) U Hyaline Cast (Auto) (0-2) /LPF Urine Microscopic RBC (0-5) /HPF Urine Microscopic WBC (0-5) /HPF Ur Epithelial Cells (None Seen) /HPF Urine Bacteria (None Seen) /HPF Urine Culture Reflexed (NO) 06/24/23 06/24/23 06/24/23 Range/Units 12:24 13:10 13:26 WBC (4.0-10.5) x10^3/uL RBC (4.1-5.6) x10^6/uL Hgb (12.5-18.0) g/dL Hct (42-50) % MCV (78-100) fL MCH (26-32) pg MCHC (32-36) g/dL RDW (11.5-14.0) % Plt Count (150-450) x10^3/uL MPV (7.5-11.0) fL Gran % (36.0-66.0) % Immature Gran % (Auto) (0.00-0.4) % Nucleat RBC Rel Count (0.00-0.1) % Eos # (Auto) (0-0.5) x10^3/uL Immature Gran # (Auto) (0.00-0.03) x10^3u/L Absolute Lymphs (auto) (1.0-4.6) x10^3/uL Absolute Monos (auto) (0.0-1.3) x10^3/uL Absolute Nucleated RBC (0.00-0.01) x10^3u/L Lymphocytes % (24.0-44.0) % Monocytes % (0.0-12.0) % Eosinophils % (0.00-5.0) % Basophils % (0.0-0.4) % Absolute Granulocytes (1.4-6.9) x10^3/uL Basophils # (0-0.4) x10^3/uL PT (9.4-12.5) SECONDS INR (0.8-3.0) pO2/FiO2 Ratio 21.0 % VBG pH 7.25 L (7.32-7.42) VBG pCO2 at Pat Temp 36 L (42-55) mm/Hg VBG pO2 at Pat Temp 51 H (25-40) mm/Hg VBG HCO3 15.8 L* (22-28) meq/L VBG O2 Sat (Devang) 83.0 L (95-100) VBG Base Excess -10.6 L (-2.0-2.0) VBG Hemoglobin 9.3 VBG Carboxyhemoglobin 3.9 (0.0-6.9) % T HGB POC Potassium 6.5 H* (3.5-5.1) Sodium (135-145) mmol/L Sodium Direct (138-146) mmol/L Potassium (3.5-5.1) mmol/L Chloride (98-107) mmol/L Carbon Dioxide (22-30) mmol/L Anion Gap (5-15) MEQ/L BUN (9-20) mg/dL Venous BUN (8-26) mg/dL Creatinine (0.66-1.25) mg/dL Estimated GFR ML/MIN Glucose (74-106) mg/dL POC Glucometer (74 to 106) mg/dL Hemoglobin A1c (4.5-6.0) % Lactic Acid 2.0 (0.4-2.0) Calcium (8.4-10.2) mg/dL Ionized Calcium (1.12-1.32) mmol/L Total Bilirubin (0.2-1.3) mg/dL Direct Bilirubin (0.0-0.4) mg/dL AST (17-59) U/L ALT (0-50) U/L Alkaline Phosphatase (38-126) U/L Ammonia ACCOUNT COLLECTOR Serum Total Protein (6.3-8.2) g/dL Albumin (3.5-5.0) g/dL Urine Color (Yellow) Urine Appearance (Clear) Urine pH (4.6-8.0) Ur Specific [place] (1.005-1.030) Urine Protein (Negative) Urine Glucose (UA) (Negative) mg/dL Urine Ketones (Negative) Urine Blood (Negative) Urine Nitrite (Negative) Urine Bilirubin (Negative) Urine Urobilinogen (0.2) mg/dL Ur Leukocyte Esterase (Negative) U Hyaline Cast (Auto) (0-2) /LPF Urine Microscopic RBC (0-5) /HPF Urine Microscopic WBC (0-5) /HPF Ur Epithelial Cells (None Seen) /HPF Urine Bacteria (None Seen) /HPF Urine Culture Reflexed (NO) 06/24/23 06/24/23 06/25/23 Range/Units 18:10 21:16 02:34 WBC (4.0-10.5) x10^3/uL RBC (4.1-5.6) x10^6/uL Hgb (12.5-18.0) g/dL Hct (42-50) % MCV (78-100) fL MCH (26-32) pg MCHC (32-36) g/dL RDW (11.5-14.0) % Plt Count (150-450) x10^3/uL MPV (7.5-11.0) fL Gran % (36.0-66.0) % Immature Gran % (Auto) (0.00-0.4) % Nucleat RBC Rel Count (0.00-0.1) % Eos # (Auto) (0-0.5) x10^3/uL Immature Gran # (Auto) (0.00-0.03) x10^3u/L Absolute Lymphs (auto) (1.0-4.6) x10^3/uL Absolute Monos (auto) (0.0-1.3) x10^3/uL Absolute Nucleated RBC (0.00-0.01) x10^3u/L Lymphocytes % (24.0-44.0) % Monocytes % (0.0-12.0) % Eosinophils % (0.00-5.0) % Basophils % (0.0-0.4) % Absolute Granulocytes (1.4-6.9) x10^3/uL Basophils # (0-0.4) x10^3/uL PT (9.4-12.5) SECONDS INR (0.8-3.0) pO2/FiO2 Ratio % VBG pH (7.32-7.42) VBG pCO2 at Pat Temp (42-55) mm/Hg VBG pO2 at Pat Temp (25-40) mm/Hg VBG HCO3 (22-28) meq/L VBG O2 Sat (Devang) (95-100) VBG Base Excess (-2.0-2.0) VBG Hemoglobin VBG Carboxyhemoglobin (0.0-6.9) % T HGB POC Potassium (3.5-5.1) Sodium (135-145) mmol/L Sodium Direct (138-146) mmol/L Potassium 6.2 H* (3.5-5.1) mmol/L Chloride (98-107) mmol/L Carbon Dioxide (22-30) mmol/L Anion Gap (5-15) MEQ/L BUN (9-20) mg/dL Venous BUN (8-26) mg/dL Creatinine (0.66-1.25) mg/dL Estimated GFR ML/MIN Glucose (74-106) mg/dL POC Glucometer 104 (74 to 106) mg/dL Hemoglobin A1c (4.5-6.0) % Lactic Acid (0.4-2.0) Calcium (8.4-10.2) mg/dL Ionized Calcium (1.12-1.32) mmol/L Total Bilirubin (0.2-1.3) mg/dL Direct Bilirubin (0.0-0.4) mg/dL AST (17-59) U/L ALT (0-50) U/L Alkaline Phosphatase (38-126) U/L Ammonia Serum Total Protein (6.3-8.2) g/dL Albumin (3.5-5.0) g/dL Urine Color Yellow (Yellow) Urine Appearance Clear (Clear) Urine pH 5.0 (4.6-8.0) Ur Specific [place] 1.015 (1.005-1.030) Urine Protein Negative (Negative) Urine Glucose (UA) Negative (Negative) mg/dL Urine Ketones Negative (Negative) Urine Blood Negative (Negative) Urine Nitrite Negative (Negative) Urine Bilirubin Negative (Negative) Urine Urobilinogen 0.2 (0.2) mg/dL Ur Leukocyte Esterase Negative (Negative) U Hyaline Cast (Auto) 6-10 A (0-2) /LPF Urine Microscopic RBC 0-2 (0-5) /HPF Urine Microscopic WBC 0-2 (0-5) /HPF Ur Epithelial Cells None Seen (None Seen) /HPF Urine Bacteria None Seen (None Seen) /HPF Urine Culture Reflexed NO (NO) 06/25/23 06/25/23 06/25/23 Range/Units 04:29 04:29 04:29 WBC 14.6 H (4.0-10.5) x10^3/uL RBC 2.50 L (4.1-5.6) x10^6/uL Hgb 7.9 L (12.5-18.0) g/dL Hct 26.0 L (42-50) % MCV 104.0 H (78-100) fL MCH 31.6 (26-32) pg MCHC 30.4 L (32-36) g/dL RDW 19.0 H (11.5-14.0) % Plt Count 247 (150-450) x10^3/uL MPV 10.3 (7.5-11.0) fL Gran % 77.5 H (36.0-66.0) % Immature Gran % (Auto) 1.2 H (0.00-0.4) % Nucleat RBC Rel Count 0.0 (0.00-0.1) % Eos # (Auto) 0.26 (0-0.5) x10^3/uL Immature Gran # (Auto) 0.18 H (0.00-0.03) x10^3u/L Absolute Lymphs (auto) 1.53 (1.0-4.6) x10^3/uL Absolute Monos (auto) 1.24 (0.0-1.3) x10^3/uL Absolute Nucleated RBC 0.00 (0.00-0.01) x10^3u/L Lymphocytes % 10.5 L (24.0-44.0) % Monocytes % 8.5 (0.0-12.0) % Eosinophils % 1.8 (0.00-5.0) % Basophils % 0.5 (0.0-0.4) % Absolute Granulocytes 11.32 H (1.4-6.9) x10^3/uL Basophils # 0.07 (0-0.4) x10^3/uL PT (9.4-12.5) SECONDS INR (0.8-3.0) pO2/FiO2 Ratio % VBG pH (7.32-7.42) VBG pCO2 at Pat Temp (42-55) mm/Hg VBG pO2 at Pat Temp (25-40) mm/Hg VBG HCO3 (22-28) meq/L VBG O2 Sat (Devang) (95-100) VBG Base Excess (-2.0-2.0) VBG Hemoglobin VBG Carboxyhemoglobin (0.0-6.9) % T HGB POC Potassium (3.5-5.1) Sodium 136 (135-145) mmol/L Sodium Direct (138-146) mmol/L Potassium 6.1 H* (3.5-5.1) mmol/L Chloride 112 H (98-107) mmol/L Carbon Dioxide 16 L* (22-30) mmol/L Anion Gap 14.3 (5-15) MEQ/L BUN 109 H (9-20) mg/dL Venous BUN (8-26) mg/dL Creatinine 3.25 H (0.66-1.25) mg/dL Estimated GFR 19.6 ML/MIN Glucose 91 (74-106) mg/dL POC Glucometer (74 to 106) mg/dL Hemoglobin A1c (4.5-6.0) % Lactic Acid (0.4-2.0) Calcium 7.6 L (8.4-10.2) mg/dL Ionized Calcium (1.12-1.32) mmol/L Total Bilirubin 0.80 (0.2-1.3) mg/dL Direct Bilirubin 0.5 H (0.0-0.4) mg/dL AST 73 H (17-59) U/L ALT 42 (0-50) U/L Alkaline Phosphatase 500 H (38-126) U/L Ammonia Serum Total Protein 4.9 L (6.3-8.2) g/dL Albumin 1.7 L (3.5-5.0) g/dL Urine Color (Yellow) Urine Appearance (Clear) Urine pH (4.6-8.0) Ur Specific [place] (1.005-1.030) Urine Protein (Negative) Urine Glucose (UA) (Negative) mg/dL Urine Ketones (Negative) Urine Blood (Negative) Urine Nitrite (Negative) Urine Bilirubin (Negative) Urine Urobilinogen (0.2) mg/dL Ur Leukocyte Esterase (Negative) U Hyaline Cast (Auto) (0-2) /LPF Urine Microscopic RBC (0-5) /HPF Urine Microscopic WBC (0-5) /HPF Ur Epithelial Cells (None Seen) /HPF Urine Bacteria (None Seen) /HPF Urine Culture Reflexed (NO) 06/25/23 06/25/23 06/25/23 Range/Units 04:34 08:08 08:11 WBC (4.0-10.5) x10^3/uL RBC (4.1-5.6) x10^6/uL Hgb (12.5-18.0) g/dL Hct (42-50) % MCV (78-100) fL MCH (26-32) pg MCHC (32-36) g/dL RDW (11.5-14.0) % Plt Count (150-450) x10^3/uL MPV (7.5-11.0) fL Gran % (36.0-66.0) % Immature Gran % (Auto) (0.00-0.4) % Nucleat RBC Rel Count (0.00-0.1) % Eos # (Auto) (0-0.5) x10^3/uL Immature Gran # (Auto) (0.00-0.03) x10^3u/L Absolute Lymphs (auto) (1.0-4.6) x10^3/uL Absolute Monos (auto) (0.0-1.3) x10^3/uL Absolute Nucleated RBC (0.00-0.01) x10^3u/L Lymphocytes % (24.0-44.0) % Monocytes % (0.0-12.0) % Eosinophils % (0.00-5.0) % Basophils % (0.0-0.4) % Absolute Granulocytes (1.4-6.9) x10^3/uL Basophils # (0-0.4) x10^3/uL PT (9.4-12.5) SECONDS INR (0.8-3.0) pO2/FiO2 Ratio % VBG pH (7.32-7.42) VBG pCO2 at Pat Temp (42-55) mm/Hg VBG pO2 at Pat Temp (25-40) mm/Hg VBG HCO3 (22-28) meq/L VBG O2 Sat (Devang) (95-100) VBG Base Excess (-2.0-2.0) VBG Hemoglobin VBG Carboxyhemoglobin (0.0-6.9) % T HGB POC Potassium (3.5-5.1) Sodium (135-145) mmol/L Sodium Direct (138-146) mmol/L Potassium (3.5-5.1) mmol/L Chloride (98-107) mmol/L Carbon Dioxide (22-30) mmol/L Anion Gap (5-15) MEQ/L BUN (9-20) mg/dL Venous BUN (8-26) mg/dL Creatinine (0.66-1.25) mg/dL Estimated GFR ML/MIN Glucose (74-106) mg/dL POC Glucometer 81 (74 to 106) mg/dL Hemoglobin A1c 4.47 L (4.5-6.0) % Lactic Acid (0.4-2.0) Calcium (8.4-10.2) mg/dL Ionized Calcium (1.12-1.32) mmol/L Total Bilirubin (0.2-1.3) mg/dL Direct Bilirubin (0.0-0.4) mg/dL AST (17-59) U/L ALT (0-50) U/L Alkaline Phosphatase (38-126) U/L Ammonia 13 Serum Total Protein (6.3-8.2) g/dL Albumin (3.5-5.0) g/dL Urine Color (Yellow) Urine Appearance (Clear) Urine pH (4.6-8.0) Ur Specific [place] (1.005-1.030) Urine Protein (Negative) Urine Glucose (UA) (Negative) mg/dL Urine Ketones (Negative) Urine Blood (Negative) Urine Nitrite (Negative) Urine Bilirubin (Negative) Urine Urobilinogen (0.2) mg/dL Ur Leukocyte Esterase (Negative) U Hyaline Cast (Auto) (0-2) /LPF Urine Microscopic RBC (0-5) /HPF Urine Microscopic WBC (0-5) /HPF Ur Epithelial Cells (None Seen) /HPF Urine Bacteria (None Seen) /HPF Urine Culture Reflexed (NO) Micro Results-Entire Visit: Accuchecks Date 06/25/23 Time 08:13 - Radiology Exams Ordered Rad Exams-Entire Visit: Radiology Procedures Category Date Time Status ABDOMEN AND PELVIS W/0 CONTRAS [CT] Stat Exams 06/24/23 12:26 Completed - Procedures and Test Procedures and Tests throughout Hospitalization: Therapy Orders & Screens 06/25/23 08:00 OT Screen per Nursing Assess ONCE Comment: Protocol Order Physician Instructions: Greater than 3 points order OT Admission Screening Reason For Exam: Triggered on Admission Diagnosis: Altered mental status Open Wound/Cellutlitis/Pressure Ulcers: Yes Acute Fx/ORIF/Change in wt bearing status: No Severe MUSCULOSKELETAL pain: No ADL Dysfunction: Yes Acute CVA w/Hemiparesis/Hemiplegia: No Decreased Functional Mobility/Strength: No Sprain/Strain: No Acute Post-op Mobility Dysfunction: No Total Points: 8 PT Screen per Nursing Assess ONCE Comment: Protocol Order Physician Instructions: Greater than 3 points order PT Admission Screenin Reason For Exam: Triggered on Admission Diagnosis: Altered mental status Open Wound/Cellutlitis/Pressure Ulcers: Yes Acute Fx/ORIF/Change in wt bearing status: No Severe MUSCULOSKELETAL pain: No ADL Dysfunction: Yes Acute CVA w/Hemiparesis/Hemiplegia: No Decreased Functional Mobility/Strength: No Sprain/Strain: No Acute Post-op Mobility Dysfunction: No Total Points: 8 ST Screen per Nursing Assess ONCE Comment: Protocol Order Physician Instructions: Greater than [address] Admission Screening Reason For Exam: Triggered on Admission Diagnosis: Altered mental status CVA/Dyshpagia/Aphasia: Yes: history of dysphagia Cognitive Deficits: Yes Dehydration/Nutrition Deficit: Yes Reflux: No Oral-Motor Difficulties: No Pneumonia: No Senior Care Resident: Yes Total Points: 18 Discharge Exam General Appearance: no apparent distress, alert Neurologic Exam: alert, cooperative, other (alert to person and time), No motor deficits Eye Exam: PERRL, EOMI, eyes nml inspection Ears, Nose, Throat Exam: normal ENT inspection, pharynx normal, moist mucous membranes Neck Exam: normal inspection, non-tender, supple, full range of motion Respiratory Exam: normal breath sounds, lungs clear, No respiratory distress Cardiovascular Exam: regular rate/rhythm, normal heart sounds Gastrointestinal/Abdomen Exam: soft, No tenderness, No mass Male Genitalia Exam: deferred Rectal Exam: deferred Back Exam: normal inspection, normal range of motion, No CVA tenderness, No vertebral tenderness Extremity Exam: normal inspection, normal range of motion Skin Exam: normal color, warm, dry, decubitus (coccyx), other (mutiple skin lesions/ wounds. See pics in chart for size and further evaluation.) Wound Assessment: Skin/Wound Assessment Wound/Incision Assessment Start: 06/24/23 18:34 Text: Status: Active Freq: Q6H Protocol: Document 06/25/23 00:46 KEIRY (Rec: 06/25/23 00:54 KEIRY [id number]) Wound/Incision Assessment Arm Wound Assessment Shift Assessment Wound Type Skin Tear Wound Stage Non Pressure Wound Dressing Status Dry & Intact Drainage Amount None Comment pt has multiple skin tears and bruises on the BUE, no change from previous assessment Sacrum Wound Assessment Shift Assessment Wound Type Pressure Ulcer Wound Stage Unstageable General Appearance Open to air Abdomen Wound Assessment Shift Assessment Wound Stage Non Pressure Wound Dressing Status Dry & Intact Comment RUQ- puncture wound, dressings c/d/i Heel Wound Assessment Shift Assessment Dressing Status Dry & Intact Surrounding Tissue Bright Red Wound Photo Photo Taken Yes Final Diagnosis/Problem List - Final Discharge Diagnosis/Problem (1) Altered mental status Current Visit: Yes Status: Acute Code(s): R41.82 - ALTERED MENTAL STATUS, UNSPECIFIED (2) Metastatic colon cancer to liver Current Visit: Yes Status: Chronic Code(s): C18.9 - MALIGNANT NEOPLASM OF COLON, UNSPECIFIED; C78.7 - SECONDARY MALIG NEOPLASM OF LIVER AND INTRAHEPATIC BILE DUCT (3) Ascites Current Visit: Yes Status: Chronic Code(s): R18.8 - OTHER ASCITES (4) Hyperkalemia Current Visit: Yes Status: Acute Code(s): E87.5 - HYPERKALEMIA (5) Increased ammonia level Current Visit: Yes Status: Acute Code(s): R79.89 - OTHER SPECIFIED ABNORMAL FINDINGS OF BLOOD CHEMISTRY (6) Wounds, multiple Current Visit: Yes Status: Acute Code(s): T07.XXXA - UNSPECIFIED MULTIPLE INJURIES, INITIAL ENCOUNTER (7) Anemia Current Visit: Yes Status: Chronic Code(s): D64.9 - ANEMIA, UNSPECIFIED (8) Metabolic acidosis Current Visit: Yes Status: Acute Code(s): E87.20 - ACIDOSIS, UNSPECIFIED (9) Hypoglycemia Current Visit: Yes Status: Acute Code(s): E16.2 - HYPOGLYCEMIA, UNSPECIFIED (10) YO (acute kidney injury) Current Visit: Yes Status: Acute Assessment & Plan: (1) Altered mental status Current Visit: Yes Status: Acute Assessment & Plan: - 2:2 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 - He is normally incontinent of bowel and bladder - He is assist of 1 to feed - Pt is a DNR - He has paperwork on his chart for limited interventions, agreeable to IVF, and antibiotics, basic airway management, avoid ICU, no intubation. 06/24 - Alert to person and time - pt eating eating and drinking today Code(s): R41.82 - ALTERED MENTAL STATUS, UNSPECIFIED (2) Metastatic colon cancer to liver Current Visit: Yes Status: Chronic Assessment & Plan: - case management to discuss hospice with family - Port in place - AST 91 - Alk phos 593 - + jaundice - CT abd pelvis Impression: 1. Respiration and beam artifact. 2. 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 3. Small abdominal/pelvic ascites and diffuse anasarca. 4. Mild diffuse fecal stasis. 5. Tiny gallstones/gravel - Lactulose to help with fecal stasis 06/24 - Multiple BM's last night- none charted in I&O's. Discussed this AM with Leydi RN- she was able to confirm. - Discussed hospice with sister and she will discuss with pt's son to make a decision - CM to discuss hospice with family - Will d/c with comfort care to ECF and they will transition to hospice. 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 - all on admission. - WBC 16.9 - Zosyn- pharmacy to dose 06/24 - WBC 14.6 Code(s): T07.XXXA - UNSPECIFIED MULTIPLE INJURIES, INITIAL ENCOUNTER (7) Anemia Current Visit: Yes Status: Chronic Qualifiers: Anemia type: other cause Assessment & Plan: - chronic - 2:2 Colon Ca dx - Monitor - Hgb stable at 8.9 06/24 - Hgb 7.9- trend - no active bleeding Code(s): D64.9 - ANEMIA, UNSPECIFIED (8) Metabolic acidosis Current Visit: Yes Status: Acute Assessment & Plan: - Co2 14 - start bicarb gtt - trend - ABG's PRN 06/24 - Co2 16 - cont bicarb gtt Code(s): E87.20 - ACIDOSIS, UNSPECIFIED (9) Hypoglycemia Current Visit: Yes Status: Acute Assessment & Plan: - soft diet with assist - D5 IVF with sodium bicarb - Accuchecks AC/HS 06/24 - glucose stable with IVF Code(s): E16.2 - HYPOGLYCEMIA, UNSPECIFIED (10) YO (acute kidney injury) Current Visit: Yes Status: Acute Assessment & Plan: - Creat 3.66 - Unknown baseline - Nephrology consult - gentle hydration with IVF - Hold BP meds - avoids NSAIDS 06/24 - Creat 3.25 - Cancel nephrology consult if family decides hospice. Code(s): N17.9 - ACUTE KIDNEY FAILURE, UNSPECIFIED - Discharge Discharge Date: 06/25/23 (Hospice) Disposition: Home, Self-Care Condition: Serious Prescriptions: Continue Tramadol HCl 50 mg [Ultram 50 mg] 50 mg PO Q6H PRN PRN PRN Reason: Pain Spironolactone [Aldactone] 50 mg PO BID Prochlorperazine Maleate 10 mg PO Q4H PRN PRN PRN Reason: Nausea Potassium Chloride 10 meq PO DAILY Pantoprazole Sodium [Protonix] 40 mg PO BID ondansetron HCL [Ondansetron HCl] 8 mg PO Q6H PRN PRN PRN Reason: Nausea Hydrocodone/Acetaminophen [Ashley 10-325 mg] 1 tablet PO Q6H PRN PRN PRN Reason: Pain Losartan Potassium 50 mg [Cozaar 50 MG] 50 mg PO DAILY Lorazepam 0.5 mg [Ativan 0.5 MG] 0.5 mg PO Q8H PRN PRN PRN Reason: Nausea Furosemide [Lasix] 20 mg PO DAILY Lactulose [Lactulose 20 gm/30Ml Ud Cup] 10 gm PO QID Collagenase Oint [Santyl OINTMENT] 30 gm TOP DAILY Follow up with: PITER AGUILAR OF [Primary Care Provider] -
[2023-06-25] MEDS: Santyl OINTMENT TOP SCH (10:52)
[2023-06-25] MEDS: VELTASSA PO SCH (10:52)
[2023-06-25 15:29] VITALS: BP 92/55; PULSE 70; RESP 18; TEMP 98.2; O2SAT 91
[2023-06-25] MEDS ORDERED: [UNRECOGNIZED DRUG - MIXTURE] IV SCH (18:00)
== END 2023-06-25 13:40 ==
LOC: ED 11:36 → MED SURG 16:01
PROVIDERS: ADMIT Internal Medicine; ATTEND Internal Medicine
DX: R41.82 Altered mental status, unspecified (principal); C18.9 Malignant neoplasm of colon, unspecified; C78.7 Secondary malignant neoplasm of liver and intrahepatic bile duct; R18.8 Other ascites; E87.5 Hyperkalemia; D64.9 Anemia, unspecified; E87.20 Acidosis, unspecified; E16.2 Hypoglycemia, unspecified; N17.9 Acute kidney failure, unspecified; L89.159 Pressure ulcer of sacral region, unspecified stage; Z79.899 Other long term (current) drug therapy; Z20.828 Contact with and (suspected) exposure to other viral communicable diseases
CPT/HCPCS: 36000; 36415; 74176; 80047; 80053; 81001; 82140; 82248; 82805; 82947; 83036; 83605; 84132; 85025; 85610; 93268; 96374; 96375; 99285; G0378; Q3014; J0612; J1940; J2543; A9270-GY; J3590-GY